=== PATIENT | male | born 1940 | race Caucasian/White ===

== ENCOUNTER → 2021-04-07 11:05 | Outpatient (CLI) | payer MEDICARE, SELFPAY ==
--- NOTE | ~2021-04-07 | XR_ITS ---
XR hip LT 2V w AP pelvis 04/07/2021 11:20 Indication: Left hip pain Procedure: 3 views left hip including AP pelvis Comparison: No prior studies for comparison. Findings: There is severe osteoarthritis of the left hip with subchondral cyst formation and possible subchondral fracture superiorly. There is lower lumbar spondylosis. Osteopenia. Pelvic rings are int act. Sacral foramen are symmetric. Impression: 1: Severe osteoarthritis of the left hip with possible subchondral fracture. Consider correlation wit h MRI. Reviewed, dictated and finalized at location A. Impression: 1: Severe osteoarthritis of the left hip with possible subchondral fracture. Co nsider correlation with MRI.
== END ==
PROVIDERS: PCP Nurse Practitioner Adult Health; Visit Provider Nurse Practitioner Adult Health
DX: M16.12 Unilateral primary osteoarthritis, left hip (principal)
CPT/HCPCS: 73502